=== PATIENT | male | born 1950 | race African-American/Black ===

== ENCOUNTER → 2018-11-28 | Outpatient (CLI) | payer OTHER ==
[~2018-11-28] MED LIST: ATIVAN2 MG PO; CLOPIDOGREL75 MG PO; DILTIAZEM 24HR300 M2 PO; ECOTRIN81 MG PO; FUROSEMIDE 40 M40 M1 PO; IRON325 MG PO; ISOSORBIDE DINI30 MG PO; KLOR-CON M2020 MEQ PO; LEVOTHYROXIN0.125 M1 PO; LIPITOR 10 MG10 M1 PO; LISINOPRIL10 MG PO; METOPROLOL SUCC50 MG PO; NITROSTAT0.4 MG SL; TAMSULOSIN HCL0.4 M1 PO
== END ==
LOC: NUC 08:02
DX: I25.10 Atherosclerotic heart disease of native coronary artery without angina pectoris (principal); E78.00 Pure hypercholesterolemia, unspecified